=== PATIENT | female | born 1965 | race Caucasian/White ===

== ENCOUNTER 2019-01-05 10:45 | Emergency (ER) | payer MEDICARE, MEDICAID ==
[~2019-01-05] VITALS: Ht 154.9 cm; Wt 95.0 kg
[~2019-01-05 10:45] MED LIST: LIB25C PO; NO HOME MEDS
--- NOTE | 2019-01-05 10:56 | NUR ---
PT GETTING BLOOD DRAWN BEFORE TRIAGE.
[2019-01-05 11:36] LABS: BASOPHILS # (AUTO) 0.1 X10'3 (0-0.2); BASOPHILS % (AUTO) 0.8 % (0-1); EOSINOPHILS # (AUTO) 0.2 X10'3 (0-0.9); EOSINOPHILS % (AUTO) 1.9 % (0-6); HEMATOCRIT 49.3 % (35.0-45.0); HEMOGLOBIN 17.2 g/dl (12.0-16.0); LYMPHOCYTES # (AUTO) 2.2 X10'3 (1.1-4.8); LYMPHOCYTES % (AUTO) 23.2 % (21-51); MEAN CORPUSCULAR HEMOGLOBIN 33.4 PG (27.0-31.0); MEAN CORPUSCULAR HGB CONC 34.8 g/dL (33.0-36.5); MEAN CORPUSCULAR VOLUME 95.9 FL (78-98); MONOCYTES # (AUTO) 0.5 X10'3 (0-0.9); MONOCYTES % (AUTO) 5.8 % (2-12); NEUTROPHILS # (AUTO) 6.4 X10'3 (1.8-7.7); NEUTROPHILS % (AUTO) 68.3 % (42-75); PLATELET COUNT 212 X10'3 (140-440); RED BLOOD COUNT 5.14 X10'6 (4.20-5.60); RED CELL DISTRIBUTION WIDTH 13.2 % (11.5-14.5); WHITE BLOOD COUNT 9.4 X10'3 (4.5-11.0)
--- NOTE | 2019-01-05 11:39 | NUR ---
PATIENT REPORTS: HX: "BROKEN LEFT CLAVICLE: 6-7 YEARS AGO; CERVICAL FUSION -: 1998" PATIENT HAS TRIED : ICE/HEAT; IBUPROFEN AND TYLENOL; TIGER BALM: NOTHING IS HELPING "WORSE" PAIN STARTED 5 DAYS AGO AFTER SHE DID SOME CLEANING: HAD SOME PAIN IN LEFT SHOULDER PREVIOUSLY WHERE IBUPROFEN DID WORK PAIN NOW: POSTERIOR STABBING STARTS ALONG MEDIAL EDGE OF SHOULDER BLADE, UP AROUND SHOULDER BLADE SUPERIORLY OVER SHOULDER TO ANTERIOR SHOULDER
[2019-01-05 11:47] LABS: PARTIAL THROMBOPLASTIN TIME 26 SECONDS (22-32)
[2019-01-05 11:49] LABS: ALANINE AMINOTRANSFERASE 16 U/L (12-78); ALBUMIN 4.2 G/DL (3.4-5.0); ALBUMIN/GLOBULIN RATIO 1.1 (1.1-1.5); ALKALINE PHOSPHATASE 91 IU/L (46-116); ANION GAP 10 (8-16); ASPARTATE AMINO TRANSFERASE 14 U/L (10-37); BILIRUBIN,TOTAL 0.4 MG/DL (0.1-1.0); BLOOD UREA NITROGEN 12 MG/DL (7-18); BUN/CREATININE RATIO 17.9 (6.6-38.0); CALCIUM 9.5 MG/DL (8.5-10.1); CHLORIDE 101 MMOL/L (99-107); CREATININE 0.67 MG/DL (0.40-0.90); GLUCOSE 129 MG/DL (70-104); POTASSIUM 3.9 MMOL/L (3.5-5.1); SODIUM 139 MMOL/L (135-145); TOTAL CARBON DIOXIDE 27.7 MMOL/L (24-32); TOTAL PROTEIN 8.1 G/DL (6.4-8.2); eGFR > 90 ML/MIN
[2019-01-05] MEDS ORDERED: HYDROcodone/acetaminophen 5mg/325mg tablet PO ONE (12:00)
[2019-01-05] MEDS ORDERED: ondansetron 4mg rapidly disintigrating tab PO ONE (12:00)
[2019-01-05] MEDS ORDERED: amLODIPine 5mg tablet PO ONE (12:20)
[2019-01-05] MEDS ORDERED: HYDR-3965 PO (13:02)
[2019-01-05] MEDS ORDERED: LIDO700A32 TOP (13:02)
[2019-01-05] MEDS ORDERED: AMLO10TA13 PO (13:02)
[2019-01-05] MEDS ORDERED: CYCL-1 PO (13:02)
[2019-01-05 13:15] VITALS: BP 163/99
== END 2019-01-05 13:17 | disposition home or self-care (01) ==
LOC: ER 10:46
DX: M25.512 Pain in left shoulder (principal); I10 Essential (primary) hypertension; R79.1 Abnormal coagulation profile; R07.2 Precordial pain; Z79.899 Other long term (current) drug therapy
CPT/HCPCS: 20552; 36415; 71045; 73030; 80053; 84484; 85025; 85610; 85730; 93005; 99284

== ENCOUNTER 2019-11-15 12:57 | Inpatient (IN) | payer OTHER, MEDICARE, MEDICAID ==
[2019-11-15] VITALS (7 sets, daily range): BP systolic 62–109; BP diastolic 38–72
[~2019-11-15] VITALS: Ht 162.6 cm; Wt 88.6 kg
[~2019-11-15 12:57] MED LIST changes: +AMLO10TA13 PO; +CYCL-1 PO; +LIDO700A32 TOP; +NORepinephrine 8 MG in NS 250 ML BAG (32 mcg/ml) IV ONE; +calcium chloride 100 MG/1 ML inj IV ONE; +magnesium sulf 1 GM/2 ML ONE; +sodium bicarbonate (8.4%) 1 mEq/ml syringe ONE
[2019-11-15] MEDS ORDERED: aspirin 81mg tab.chew PO ONE (13:10)
[2019-11-15] MEDS ORDERED: aspirin 300mg supp.rect RC ONE (13:20)
[2019-11-15] MEDS ORDERED: magnesium 2GM in 50ml NS 50 ML IV ONE ×2 (13:20→23:10)
[2019-11-15 13:26] LABS: ABG BASE EXCESS -19.4 mmol/L (-2.0-2.0); ABG PO2 (T) 142.4 mmHg (75.0-100.0); ALLEN'S TEST POSITIVE; FMetHb 0.3 % (0.0-1.5); FO2Hb 90.9 % (94-97); RESPIRATORY RATE 18 b/min; TIDAL VOLUME 400 mL; TOTAL HEMOGLOBIN 13.6 G/dl (12.0-16.0)
--- NOTE | 2019-11-15 13:30 | NUR ---
BICARB 2 AMPS V/O Brigida BENTLEY
[2019-11-15] MEDS ORDERED: insulin regular, human 10 units/0.1 ml syringe IV ONE (13:35)
[2019-11-15 13:40] LABS: BASOPHILS # (AUTO) 0.1 X10'3 (0-0.2); BASOPHILS % (AUTO) 0.8 % (0-1); EOSINOPHILS # (AUTO) 0.2 X10'3 (0-0.9); EOSINOPHILS % (AUTO) 1.1 % (0-6); LYMPHOCYTES # (AUTO) 4.6 X10'3 (1.1-4.8); LYMPHOCYTES % (AUTO) 32.3 % (21-51); MONOCYTES # (AUTO) 0.5 X10'3 (0-0.9); MONOCYTES % (AUTO) 3.7 % (2-12); NEUTROPHILS # (AUTO) 8.7 X10'3 (1.8-7.7); NEUTROPHILS % (AUTO) 62.1 % (42-75); PLATELET COUNT 201 X10'3 (140-440); RED CELL DISTRIBUTION WIDTH 14.3 % (11.5-14.5); WHITE BLOOD COUNT 14.1 X10'3 (4.5-11.0)
[2019-11-15] MEDS ORDERED: NORepinephrine 8mg/ 250ml NS 250 ML IV PRN (13:40)
[2019-11-15] MEDS ORDERED: potassium CL 20mEq in D5-1/2NS 1,000 ML IV PRN (13:41)
[2019-11-15] MEDS ORDERED: sodium bicarbonate (8.4%) inj. 50 MEQ in dextrose 5% water 500ml 250 ML IV PRN (13:41)
[2019-11-15] MEDS ORDERED: sodium bicarbonate (8.4%) inj. 100 MEQ in dextrose 5% water 500ml 500 ML IV PRN (13:41)
--- NOTE | 2019-11-15 13:42 | NUR ---
1332 CA CHLORIDE 1338 BG "HIGH" 1340 INSULIN 10 UNITS 1340 LEVO 0.1 BP 62/43 1345 LEVO 0.15 FOR BP 77/42, HR 119
[2019-11-15] MEDS ORDERED: sodium phosphate inj. 30 MMOL in dextrose 5%-water 250 ML IV PRN (13:45)
[2019-11-15] MEDS ORDERED: morphine 2 MG/ML inj. syringe IV PRN (13:45)
[2019-11-15] MEDS ORDERED: Neutra Phos packet PO PRN (13:45)
[2019-11-15] MEDS ORDERED: acetaminophen 325mg tablet PO PRN ×2 (13:45)
[2019-11-15] MEDS ORDERED: potassium Cl 20 mEq SR tablet PO PRN ×2 (13:45)
[2019-11-15] MEDS ORDERED: insulin regular, human U-100 3ml vial - multi-dose IV PRN ×2 (13:45→14:15)
[2019-11-15] MEDS: K, MAG and/or Phos replacement - Verify level? MC SCH (13:45)
[2019-11-15] MEDS ORDERED: metoclopramide 5 mg/ml inj IV PRN (13:45)
[2019-11-15] MEDS ORDERED: potassium CL 10mEq/100ml bag 100 ML IV PRN ×2 (13:45)
[2019-11-15] MEDS ORDERED: sodium phosphate inj. 15 MMOL in dextrose 5%-water 250 ML IV PRN (13:45)
[2019-11-15 13:59] LABS: ALANINE AMINOTRANSFERASE 107 U/L (12-78); ALBUMIN 2.4 G/DL (3.4-5.0); ALBUMIN/GLOBULIN RATIO 0.9 (1.1-1.5); ALKALINE PHOSPHATASE 129 IU/L (46-116); ANION GAP 16 (8-16); ASPARTATE AMINO TRANSFERASE 170 U/L (10-37); BILIRUBIN,TOTAL 0.5 MG/DL (0.1-1.0); BLOOD UREA NITROGEN 12 MG/DL (7-18); BUN/CREATININE RATIO 9.9 (6.6-38.0); CALCIUM 9.9 MG/DL (8.5-10.1); CHLORIDE 98 MMOL/L (99-107); CREATININE 1.21 MG/DL (0.40-0.90); POTASSIUM 4.8 MMOL/L (3.5-5.1); SODIUM 134 MMOL/L (135-145); TOTAL CARBON DIOXIDE 20.2 MMOL/L (24-32); TOTAL PROTEIN 5.2 G/DL (6.4-8.2); eGFR 46 ML/MIN
[2019-11-15] MEDS: normal saline 1000ml 1,000 ML IV SCH ×5 (13:59→23:47)
[2019-11-15 14:09] LABS: GLUCOSE 744 MG/DL (70-104)
[2019-11-15] MEDS ORDERED: Insulin Reg/NS 100units/100mL 100 ML IV SCH (14:12)
[2019-11-15 14:22] LABS: HCG SERUM QL NEGATIVE
[2019-11-15] MEDS ORDERED: fentaNYL/PF 50MCG/1 ML 2ML syringe IV PRN ×2 (14:25→14:50)
[2019-11-15] MEDS ORDERED: midazolam 100mg in NS 100ml 100 ML IV PRN ×2 (14:25→14:48)
[2019-11-15 14:26] LABS: RED BLOOD COUNT 3.32 X10'6 (4.20-5.60)
[2019-11-15 14:27] LABS: HEMATOCRIT 34.1 % (35.0-45.0); HEMOGLOBIN 11.4 g/dl (12.0-16.0)
[2019-11-15 14:30] LABS: MEAN CORPUSCULAR VOLUME 102.7 FL (78-98)
[2019-11-15 14:31] LABS: MEAN CORPUSCULAR HEMOGLOBIN 34.2 PG (27.0-31.0); MEAN CORPUSCULAR HGB CONC 33.3 g/dL (33.0-36.5)
[2019-11-15] MEDS: Insulin Reg/NS 100units/100mL 100 ML IV SCH ×3 (14:32→23:58)
[2019-11-15 14:35] LABS: NUCLEATED RED BLOOD CELLS 1 /100WBC (0-0); PLATELET ESTIMATE NORMAL; TOTAL CELLS COUNTED 100
[2019-11-15 14:36] LABS: POLYCHROMASIA FEW
[2019-11-15 14:37] LABS: PHOSPHORUS 10.4 MG/DL (2.3-4.5)
[2019-11-15] MEDS ORDERED: midazolam 2 mg/2 ml injection IV PRN (14:50)
[2019-11-15] MEDS ORDERED: midazolam 2 mg/2 ml injection IV ONE (14:50)
[2019-11-15] MEDS ORDERED: CefTRIAXone 2gm/D5W 50ml 50 ML IV SCH (14:55)
[2019-11-15] MEDS ORDERED: levoFLOXACIN-Levaquin 750MG/D5 150 ML IV SCH (14:55)
--- NOTE | 2019-11-15 15:00 | NUR ---
NOTIFIED DR LI OF HR 140 AND BP 195/103. SEDATION CHANGED FROM VERSED TO PROPOFOL
[2019-11-15] MEDS ORDERED: propofol 1000mg/100ml bottle 100 ML IV ONE (15:01)
[2019-11-15 15:11] LABS: D-DIMER 33.64 MG/L FEU (0-0.50)
[2019-11-15 15:16] LABS: ABG BASE EXCESS -10.5 mmol/L (-2.0-2.0); ABG HCO3 16.6 mmol/L (22.0-26.0); ABG OXYGEN SATURATION 99.5 % (94-97); ABG PCO2 (T) 41.1 mmHg (32.0-45.0); ABG PO2 (T) 419.5 mmHg (75.0-100.0); ALLEN'S TEST POSITIVE; FCOHb 3.6 % (0.0-3.9); FMetHb 0.3 % (0.0-1.5); FO2Hb 95.6 % (94-97); PEEP 5 cm H2O; RESPIRATORY RATE 24 b/min; TIDAL VOLUME 400 mL; TOTAL HEMOGLOBIN 15.6 G/dl (12.0-16.0)
--- NOTE | 2019-11-15 15:17 | NUR ---
FENTANYL DRIP NOT IN THE [facility],CALLED PHARMACY/[facility].
[2019-11-15] MEDS ORDERED: iohexol 350MG/ML 100ml bottle IV ONE (15:24)
[2019-11-15] MEDS: FENTANYL-0.9 % NACL/PF 100 ML IV PRN ×2 (15:57→16:38)
--- NOTE | 2019-11-15 16:05 | NUR ---
PT INTO V TAC TORSAUDS PT SHOCKED WITH 200J WITH DR LI AT BS, MG 2 GRAMS IVP GIVEN AND LEVAQUIN STOPPED.
[2019-11-15 16:17] LABS: URINE AMPHETAMINE SCREEN NEGATIVE (Neg); URINE BARBITUATE SCREEN NEGATIVE (Neg); URINE BENZODIAZEPINES SCREEN POSITIVE (Neg); URINE CANNABINOID SCREEN NEGATIVE (Neg); URINE COCAINE SCREEN NEGATIVE (Neg); URINE METHADONE SCREEN NEGATIVE (Neg); URINE OPIATE SCREEN NEGATIVE (Neg); URINE PHENCYCLIDINE SCREEN NEGATIVE (Neg)
--- NOTE | 2019-11-15 16:20 | NUR ---
DR GILMORE AT TO CHECK ON PT. INFORMED OF TORSADS AND TX. HE RECOMENDS COOLING MEASURES, ICE PACKS APPLIED. MANDO WILL PUT IN PROTOCOL
--- NOTE | 2019-11-15 16:24 | NUR ---
PROPOFOL INCREASED TO 10MCG
[2019-11-15] MEDS: propofol 1000mg/100ml bottle 100 ML IV SCH (16:39)
--- NOTE | 2019-11-15 16:40 | NUR ---
FENT INCREASED TO 50MCG PROPOFOL TO 15MCG D/T HTN AND BUCKING THE VENT
--- NOTE | 2019-11-15 16:53 | NUR ---
Gave report to FISHER CRAB [place]ano,will speak to charge nurse since not aware that patient is suppose to be on cooling measures-which is verbally ordered by Dr. Andino when MD came down to see patient.JUSTEN Nguyen made aware.
[2019-11-15] MEDS ORDERED: vancomycin/NS 1 GM ADD-VANTAGE 250 ML IV SCH (17:00)
--- NOTE | 2019-11-15 17:08 | NUR ---
Per Wendy/clarita,[place] RN to come down to help ED RN take patient to icu.RT at bedside.
--- NOTE | 2019-11-15 18:20 | NUR ---
Patient in room ICU 2046. I have received report from STANISLAV Ríos and had the opportunity to ask questions and assume patient care. Patient recently arrived to ICU, targeted temperature management in progress. patinet is not responsive, no gag or cough noted with suction. Patient with hypotension with MAP < 60. Levophed started
[2019-11-15] MEDS: NORepinephrine 8mg/ 250ml NS 250 ML IV PRN (18:30)
--- NOTE | 2019-11-15 18:45 | NUR ---
Patient arrived to the unit at 1720 and placed on ventilator and bedside monitor with stable vital signs on an Insulin drip at 5mg/hour, Propofol at 15mcg/kg/min, and Fentanyl at 50mcg/hour. Patient up to the floor with copious liquid stool and rectal tube placed; C.Diff sample and isolation started. Patient quickly appeared to have labile blood pressure SBP in the 60s. Propofol and Fentanyl stopped and Levophed started. Patient remains unresponsive and pupils non-reactive 6mm. Jessica HERNANDEZ notified and orders for EEG in AM and Keppra. Also, orders for Blood Cultures.
--- NOTE | 2019-11-15 19:00 | NUR ---
Patients family called for update. Per family Patient has not been to a doctor in a while. Per family had been c/o shoulder pain since December. She has a history of seizure disorder since 2016, was on medications up to recently when she stopped seeing her doctor. Her family relate that she has had bilateral lower leg edema for the last couple of months and would c/o being dizzy when standing up. Per her family she is a current smoker of 0.75 packs per day. Previous issues with her liver and ETOH and has been sober per her family for 2 months. Additional family history of all the females on her mothers side have of heart issues.
[2019-11-15] MEDS ORDERED: meperidine/PF 25mg/ml syringe IV PRN (19:10)
[2019-11-15] MEDS ORDERED: CISatracurium **Bolus** 2 mg/ml inj IV PRN (19:10)
[2019-11-15] MEDS ORDERED: levetiracetam-NS 1000mg/100ml 100 ML IV ONE (19:15)
[2019-11-15 19:17] LABS: ALBUMIN 2.4 G/DL (3.4-5.0); ANION GAP 13 (8-16); BLOOD UREA NITROGEN 14 MG/DL (7-18); BUN/CREATININE RATIO 12.7 (6.6-38.0); CALCIUM 9.1 MG/DL (8.5-10.1); CHLORIDE 110 MMOL/L (99-107); GLUCOSE 353 MG/DL (70-104); PHOSPHORUS 3.1 MG/DL (2.3-4.5); SODIUM 144 MMOL/L (135-145); TOTAL CARBON DIOXIDE 21.4 MMOL/L (24-32); eGFR 52 ML/MIN
[2019-11-15 19:22] LABS: POTASSIUM 2.8 MMOL/L (3.5-5.1)
[2019-11-15] MEDS: potassium Cl 20mEq/100mL bag 100 ML IV PRN ×4 (19:46→23:46)
[2019-11-15] MEDS ORDERED: insulin Lispro (HumaLOG) vial - multi-dose SQ PRN (20:10)
[2019-11-15] MEDS: famotidine/PF 10 mg/ml inj IV SCH (20:45)
[2019-11-15 20:50] LABS: ABG BASE EXCESS -13.8 mmol/L (-2.0-2.0); ABG HCO3 14.8 mmol/L (22.0-26.0); ABG OXYGEN SATURATION 95.5 % (94-97); ABG PCO2 (T) 35.8 mmHg (32.0-45.0); ABG PO2 (T) 69.7 mmHg (75.0-100.0); ALLEN'S TEST POSITIVE; FCOHb 0.7 % (0.0-3.9); FMetHb 0.3 % (0.0-1.5); FO2Hb 94.5 % (94-97); PATIENT TEMPERATURE 32.2; PEEP 5 cm H2O; RESPIRATORY RATE 24 b/min; TIDAL VOLUME 400 mL; TOTAL HEMOGLOBIN 16.6 G/dl (12.0-16.0)
[2019-11-15 20:56] LABS: OXYGEN SATURATION (MIXED VEN) 48.3 % (60-80); PO2 MIXED VENOUS (TEMP COR) 22.6 mmHg (35-46)
--- NOTE | 2019-11-15 21:19 | NUR ---
Cynthia Zavala NP at bedside. Critical blood gas results and mixed venous given.
[2019-11-15] MEDS ORDERED: DOBUTamine-DoBUTrex 500mg/D5W 250 ML IV SCH (21:25)
[2019-11-15] MEDS: cefepime 2g/NS 100ml ADVANTAGE 100 ML IV SCH (21:28)
[2019-11-15 22:32] LABS: PARTIAL THROMBOPLASTIN TIME 22 SECONDS (22-32)
[2019-11-15 22:33] LABS: ALBUMIN 2.4 G/DL (3.4-5.0); ANION GAP 13 (8-16); BLOOD UREA NITROGEN 15 MG/DL (7-18); BUN/CREATININE RATIO 13.5 (6.6-38.0); CALCIUM 9.2 MG/DL (8.5-10.1); CHLORIDE 114 MMOL/L (99-107); CREATININE 1.11 MG/DL (0.40-0.90); GLUCOSE 195 MG/DL (70-104); MAGNESIUM 1.5 MG/DL (1.5-2.4); PHOSPHORUS 1.5 MG/DL (2.3-4.5); SODIUM 147 MMOL/L (135-145); TOTAL CARBON DIOXIDE 20.5 MMOL/L (24-32); eGFR 51 ML/MIN
[2019-11-15] MEDS: vancomycin/NS 1 GM ADD-VANTAGE 250 ML IV SCH (22:33)
[2019-11-15 22:35] LABS: POTASSIUM 2.6 MMOL/L (3.5-5.1)
[2019-11-15] MEDS ORDERED: dextrose 50%-water 50ml dispensing syringe IV PRN (23:10)
[2019-11-15 23:16] LABS: OXYGEN SATURATION (MIXED VEN) 57.4 % (60-80); PO2 MIXED VENOUS (TEMP COR) 25.9 mmHg (35-46)
[2019-11-16] VITALS (24 sets, daily range): BP systolic 81–128; BP diastolic 55–84
--- NOTE | 2019-11-16 | NUR ---
Patient remains unresponsive, no response to deep pain. Pupils are non reactive at 6mm. Targeted temperature management in progress.
[2019-11-16 01:24] LABS: ALANINE AMINOTRANSFERASE 143 U/L (12-78); ALBUMIN 2.4 G/DL (3.4-5.0); ALBUMIN/GLOBULIN RATIO 0.8 (1.1-1.5); ALKALINE PHOSPHATASE 117 IU/L (46-116); ANION GAP 10 (8-16); ASPARTATE AMINO TRANSFERASE 267 U/L (10-37); BILIRUBIN,TOTAL 0.4 MG/DL (0.1-1.0); BLOOD UREA NITROGEN 15 MG/DL (7-18); BUN/CREATININE RATIO 14.3 (6.6-38.0); CALCIUM 9.4 MG/DL (8.5-10.1); CHLORIDE 116 MMOL/L (99-107); CKMB RELATIVE INDEX 13.7 RATIO (0-2.5); CREATINE KINASE 695 U/L (26-192); CREATININE 1.05 MG/DL (0.40-0.90); GLUCOSE 146 MG/DL (70-104); MAGNESIUM 1.4 MG/DL (1.5-2.4); SODIUM 149 MMOL/L (135-145); TOTAL CARBON DIOXIDE 23.2 MMOL/L (24-32); TOTAL PROTEIN 5.4 G/DL (6.4-8.2); eGFR 54 ML/MIN
[2019-11-16 01:34] LABS: PHOSPHORUS 1.2 MG/DL (2.3-4.5); POTASSIUM 2.7 MMOL/L (3.5-5.1)
[2019-11-16] MEDS ORDERED: sodium phosphate inj. 15 MMOL in dextrose 5%-water 250 ML IV PRN (02:25)
[2019-11-16] MEDS ORDERED: sodium phosphate inj. 30 MMOL in dextrose 5%-water 250 ML IV PRN (02:25)
[2019-11-16 02:36] LABS: ABG BASE EXCESS -10.4 mmol/L (-2.0-2.0); ABG HCO3 16.2 mmol/L (22.0-26.0); ABG PCO2 (T) 32.6 mmHg (32.0-45.0); ABG PO2 (T) 181.4 mmHg (75.0-100.0); ALLEN'S TEST POSITIVE; FCOHb 0.2 % (0.0-3.9); FMetHb 0.3 % (0.0-1.5); FO2Hb 98.5 % (94-97); PATIENT TEMPERATURE 33.2; PEEP 5 cm H2O; RESPIRATORY RATE 24 b/min; TIDAL VOLUME 400 mL; TOTAL HEMOGLOBIN 16.3 G/dl (12.0-16.0)
--- NOTE | 2019-11-16 02:39 | NUR ---
Cynthia Zavala NP called and notified of Critical Lab results, K of 2.7 with replacement infusing. Phos 1.2 - replacement ordered, Troponin 9.87, 2 hour lactic acid 4.1. Also new blood gas results pH 7.29, pCO2 32.6, pO2 181.4. Normal saline at 100 ml/hr currently infusing. No new orders at this time, continue to monitor.
[2019-11-16] MEDS: potassium Cl 20mEq/100mL bag 100 ML IV PRN ×7 (02:46→17:18)
[2019-11-16 04:09] LABS: PARTIAL THROMBOPLASTIN TIME 25 SECONDS (22-32)
[2019-11-16 04:16] LABS: ALBUMIN 2.3 G/DL (3.4-5.0); ANION GAP 10 (8-16); BLOOD UREA NITROGEN 15 MG/DL (7-18); BUN/CREATININE RATIO 16.1 (6.6-38.0); CALCIUM 9.3 MG/DL (8.5-10.1); CHLORIDE 121 MMOL/L (99-107); CREATININE 0.93 MG/DL (0.40-0.90); GLUCOSE 128 MG/DL (70-104); MAGNESIUM 2.1 MG/DL (1.5-2.4); SODIUM 153 MMOL/L (135-145); TOTAL CARBON DIOXIDE 22.2 MMOL/L (24-32); eGFR 63 ML/MIN
[2019-11-16 04:19] LABS: POTASSIUM 2.8 MMOL/L (3.5-5.1); TROPONIN I 11.34 NG/ML (0.0-0.05)
--- NOTE | 2019-11-16 04:42 | NUR ---
Cynthia Zavala NP called: Sodium 153, Troponin 11.34. Patient has normal saline at 100 ml/hr running. No new orders at this time.
[2019-11-16] MEDS: NORepinephrine 8mg/ 250ml NS 250 ML IV PRN ×2 (05:11→16:43)
[2019-11-16 05:31] LABS: BASOPHILS % (AUTO) 0.3 % (0-1); EOSINOPHILS % (AUTO) 0.1 % (0-6); HEMATOCRIT 46.8 % (35.0-45.0); HEMOGLOBIN 15.2 g/dl (12.0-16.0); LYMPHOCYTES # (AUTO) 0.8 X10'3 (1.1-4.8); LYMPHOCYTES % (AUTO) 4.6 % (21-51); MEAN CORPUSCULAR HEMOGLOBIN 33.3 PG (27.0-31.0); MEAN CORPUSCULAR HGB CONC 32.5 g/dL (33.0-36.5); MEAN CORPUSCULAR VOLUME 102.7 FL (78-98); MEAN PLATELET VOLUME 9.8 FL (7.4-10.4); MONOCYTES % (AUTO) 5.1 % (2-12); NEUTROPHILS # (AUTO) 16.8 X10'3 (1.8-7.7); NEUTROPHILS % (AUTO) 89.9 % (42-75); PLATELET COUNT 195 X10'3 (140-440); RED BLOOD COUNT 4.56 X10'6 (4.20-5.60); RED CELL DISTRIBUTION WIDTH 14.4 % (11.5-14.5); WHITE BLOOD COUNT 18.6 X10'3 (4.5-11.0)
--- NOTE | 2019-11-16 06:30 | NUR ---
Patient in room ICU 2046. I have received report from Johana COLORADO and had the opportunity to ask questions and assume patient care. Addendum: 11/16/19 at 0714 by Wendy Claire RN Amended: Links added.
--- NOTE | 2019-11-16 06:35 | NUR ---
Problems reprioritized. Patient report given, questions answered & plan of care reviewed with STANISLAV Nguyen.
[2019-11-16] MEDS ORDERED: dextrose 50%-water 50ml dispensing syringe IV ONE (07:07)
[2019-11-16] MEDS: cefepime 2g/NS 100ml ADVANTAGE 100 ML IV SCH ×2 (07:47→20:22)
[2019-11-16] MEDS: famotidine/PF 10 mg/ml inj IV SCH ×2 (07:49→20:22)
[2019-11-16] MEDS: K, MAG and/or Phos replacement - Verify level? MC SCH (07:55)
[2019-11-16] MEDS ORDERED: pantoprazole 40 MG vial IV SCH ×3 (08:00)
[2019-11-16] MEDS: Levetiracetam-NS 500mg/100ml 100 ML IV SCH ×2 (08:32→20:22)
[2019-11-16] MEDS: normal saline 1000ml 1,000 ML IV SCH ×2 (09:05→10:56)
[2019-11-16] MEDS: vancomycin/NS 1 GM ADD-VANTAGE 250 ML IV SCH ×2 (10:12→21:45)
[2019-11-16 10:22] LABS: BASOPHILS % (AUTO) 0.3 % (0-1); EOSINOPHILS % (AUTO) 0 % (0-6); HEMATOCRIT 45.3 % (35.0-45.0); HEMOGLOBIN 15.1 g/dl (12.0-16.0); LYMPHOCYTES # (AUTO) 0.9 X10'3 (1.1-4.8); LYMPHOCYTES % (AUTO) 5.5 % (21-51); MEAN CORPUSCULAR HGB CONC 33.2 g/dL (33.0-36.5); MEAN CORPUSCULAR VOLUME 102.5 FL (78-98); MEAN PLATELET VOLUME 9.8 FL (7.4-10.4); MONOCYTES # (AUTO) 0.5 X10'3 (0-0.9); MONOCYTES % (AUTO) 3.5 % (2-12); NEUTROPHILS # (AUTO) 14.2 X10'3 (1.8-7.7); NEUTROPHILS % (AUTO) 90.7 % (42-75); PLATELET COUNT 179 X10'3 (140-440); RED BLOOD COUNT 4.42 X10'6 (4.20-5.60); RED CELL DISTRIBUTION WIDTH 14.3 % (11.5-14.5); WHITE BLOOD COUNT 15.7 X10'3 (4.5-11.0)
[2019-11-16 10:29] LABS: PARTIAL THROMBOPLASTIN TIME 25 SECONDS (22-32)
[2019-11-16 10:31] LABS: C DIFF ANTIGEN NEGATIVE (NEGATIVE); C DIFF SPECIMEN=DIARRHEA? ACCEPTABLE; C DIFFICILE TOXINS A&B NEGATIVE (Neg)
--- NOTE | 2019-11-16 10:32 | NUR ---
Pt. remains unresponsive to painful stimuli. Nguyễn (boyfriend) and Samia (sister) both called for updates this am. Nguyễn asked for test results but RN told him those cannot be discussed with a RN. Nguyễn stated he is not legally to pt. and RN reminded him that next-of-kin (family) usually can discuss test results with MD. Will order social science teacher for pt./ family situation
[2019-11-16 10:40] LABS: CKMB RELATIVE INDEX 22.9 RATIO (0-2.5)
[2019-11-16] MEDS: Insulin Reg/NS 100units/100mL 100 ML IV SCH ×2 (11:04→17:27)
--- NOTE | 2019-11-16 11:35 | NUR ---
Kris Consult: Kris 10; skin intact, no edema. Pt intubated s/p cardiac arrest DX PNA and DKA; anion gap normal this admit and no hx DM per EMR though initial pH 6.952 and Glu 744. OG in place w/ MAP 84 and on insulin drip w/ Glu 230 following low 11 this AM. Na 153 up from initial low 134; receiving electrolyte replacements as well w/ K 2.8 and Phos 2.0 this AM. EN recs below given pt needs. RD d/w RN regarding A1C this admit given no hx DM and current DX if MD agreeable. Will continue to monitor. Rec: 1. IF TF; Vital HP at 80ml/hr goal 2. IF TF; water flush 200ml Q4 3. IF TF; PALB Q /; daily wts 4. upon extubation; advance diet as medically indicated to carb controlled/heart healthy 5. DM diet ed if medically indicated pending A1C w/ DKA DX and no hx DM; if new DM DX pt will need to receive DX by MD prior to RD visit Addendum: 11/16/19 at [address] Amended: Links added.
[2019-11-16 11:36] LABS: ABG BASE EXCESS -10.8 mmol/L (-2.0-2.0); ABG OXYGEN SATURATION 98.1 % (94-97); ABG PCO2 (T) 25.3 mmHg (32.0-45.0); ABG PO2 (T) 93.2 mmHg (75.0-100.0); ALLEN'S TEST POSITIVE; FCOHb 0.6 % (0.0-3.9); FMetHb 0.3 % (0.0-1.5); FO2Hb 97.2 % (94-97); PATIENT TEMPERATURE 33.7; PEEP 5 cm H2O; RESPIRATORY RATE 24 b/min; TIDAL VOLUME 400 mL; TOTAL HEMOGLOBIN 15.4 G/dl (12.0-16.0)
--- NOTE | 2019-11-16 11:46 | NUR ---
Dr. Castellanos here to see pt. Stated to wean the Dobutamine.
[2019-11-16 11:52] LABS: POTASSIUM 3.2 MMOL/L (3.5-5.1)
[2019-11-16 11:53] LABS: HEMOGLOBIN A1C 10.3 % (4.5-6.2)
--- NOTE | 2019-11-16 11:54 | NUR ---
CDIFF negative results noted. Isolation precautions dc'd. Charge nurse aware.
[2019-11-16 12:01] LABS: TROPONIN I 11.03 NG/ML (0.0-0.05)
[2019-11-16] MEDS ORDERED: dextrose 5%-water 1,000 ML IV SCH (12:05)
[2019-11-16] MEDS ORDERED: magnesium 4gm in 100ml NS 100 ML IV PRN (13:10)
[2019-11-16] MEDS ORDERED: magnesium 2GM in 50ml NS 50 ML IV PRN (13:10)
--- NOTE | 2019-11-16 14:25 | NUR ---
Multiple phone calls this shift from Samia Adrian and another sister of patient. RN kindly asked that one person be designated as a spokesperson to lessen the number of phone calls that take RN away from pt's care. Father, Leo will be spokesperson. Will ask MD to call Leo with updates.
[2019-11-16 16:14] LABS: BASOPHILS % (AUTO) 0.3 % (0-1); EOSINOPHILS % (AUTO) 0 % (0-6); HEMATOCRIT 45.5 % (35.0-45.0); HEMOGLOBIN 14.9 g/dl (12.0-16.0); LYMPHOCYTES # (AUTO) 1.7 X10'3 (1.1-4.8); MEAN CORPUSCULAR HEMOGLOBIN 33.8 PG (27.0-31.0); MEAN CORPUSCULAR HGB CONC 32.7 g/dL (33.0-36.5); MEAN CORPUSCULAR VOLUME 103.2 FL (78-98); MEAN PLATELET VOLUME 9.3 FL (7.4-10.4); MONOCYTES # (AUTO) 0.5 X10'3 (0-0.9); MONOCYTES % (AUTO) 2.5 % (2-12); NEUTROPHILS # (AUTO) 16.4 X10'3 (1.8-7.7); NEUTROPHILS % (AUTO) 88.2 % (42-75); PLATELET COUNT 201 X10'3 (140-440); RED BLOOD COUNT 4.41 X10'6 (4.20-5.60); RED CELL DISTRIBUTION WIDTH 14.8 % (11.5-14.5); WHITE BLOOD COUNT 18.6 X10'3 (4.5-11.0)
[2019-11-16 16:31] LABS: PARTIAL THROMBOPLASTIN TIME 25 SECONDS (22-32)
[2019-11-16 16:42] LABS: CKMB RELATIVE INDEX 27.4 RATIO (0-2.5); MAGNESIUM 2.2 MG/DL (1.5-2.4); PHOSPHORUS 2.1 MG/DL (2.3-4.5)
[2019-11-16 17:07] LABS: POTASSIUM 3.3 MMOL/L (3.5-5.1)
[2019-11-16 17:08] LABS: TROPONIN I 10.43 NG/ML (0.0-0.05)
[2019-11-16] MEDS ORDERED: Potassium Cl inj 20 MEQ in dextrose 5%-water 990 ML IV SCH (17:15)
--- NOTE | 2019-11-16 18:20 | NUR ---
Patient in room ICU 2046. I have received report from STANISLAV Nguyen and had the opportunity to ask questions and assume patient care.
--- NOTE | 2019-11-16 18:45 | NUR ---
Patient is unresponsive to deep pain stimuli.
--- NOTE | 2019-11-16 18:51 | NUR ---
Brigida Treadwell NP called regarding new fluid order of D5% Water with 20 mEq of K. Patient will be heading into the rewarming phase. Due to potential electrolyte shifts, per NATTY Treadwell it is okay to discontinue this order. Order for D5% water at 150ml/hr given. RN will draw BMP to check K levels, before hanging last 20 mEq Potassium replacement.
--- NOTE | 2019-11-16 19:38 | NUR ---
Patients family: Leo ( father) and Samia ( sister) called for an update. They live in [facility] [place] [facility] and would like to speak to the doctor tomorrow. .
--- NOTE | 2019-11-16 19:41 | NUR ---
REWARMING PHASE STARTED.
[2019-11-16 19:54] LABS: ALBUMIN 2.1 G/DL (3.4-5.0); ANION GAP 11 (8-16); BLOOD UREA NITROGEN 12 MG/DL (7-18); BUN/CREATININE RATIO 14.5 (6.6-38.0); CALCIUM 9.2 MG/DL (8.5-10.1); CHLORIDE 132 MMOL/L (99-107); CREATININE 0.83 MG/DL (0.40-0.90); GLUCOSE 127 MG/DL (70-104); POTASSIUM 4.1 MMOL/L (3.5-5.1); TOTAL CARBON DIOXIDE 21.5 MMOL/L (24-32); eGFR 71 ML/MIN
[2019-11-16 19:56] LABS: SODIUM 164 MMOL/L (135-145)
[2019-11-16] MEDS: mineral oil/petrolatum ophthal oint EACHEYE SCH (20:22)
[2019-11-16] MEDS: dextrose 5%-water 1,000 ML IV SCH (20:24)
[2019-11-16 20:51] LABS: ABG BASE EXCESS -11.7 mmol/L (-2.0-2.0); ABG HCO3 14.6 mmol/L (22.0-26.0); ABG OXYGEN SATURATION 97.1 % (94-97); ABG PCO2 (T) 29.3 mmHg (32.0-45.0); ABG PO2 (T) 78.5 mmHg (75.0-100.0); ALLEN'S TEST POSITIVE; FCOHb 0.4 % (0.0-3.9); FMetHb 0.2 % (0.0-1.5); FO2Hb 96.5 % (94-97); PATIENT TEMPERATURE 32.9; PEEP 5 cm H2O; RESPIRATORY RATE 14 b/min; TIDAL VOLUME 400 mL; TOTAL HEMOGLOBIN 15.1 G/dl (12.0-16.0)
--- NOTE | 2019-11-16 21:28 | NUR ---
Cynthia Zavala NP called. Notified of Lab values: Sodium 164, patient currently has free water flushes of 150ml every 4 hours and D5% water at 150ml/hr. BiCarb is 14.6 on ABG. No new orders at this time.
[2019-11-16 22:14] LABS: BASOPHILS # (AUTO) 0.1 X10'3 (0-0.2); BASOPHILS % (AUTO) 0.5 % (0-1); EOSINOPHILS # (AUTO) 0.1 X10'3 (0-0.9); EOSINOPHILS % (AUTO) 0.3 % (0-6); HEMATOCRIT 43.3 % (35.0-45.0); HEMOGLOBIN 14.1 g/dl (12.0-16.0); LYMPHOCYTES # (AUTO) 1.8 X10'3 (1.1-4.8); LYMPHOCYTES % (AUTO) 9.7 % (21-51); MEAN CORPUSCULAR HEMOGLOBIN 33.9 PG (27.0-31.0); MEAN CORPUSCULAR HGB CONC 32.7 g/dL (33.0-36.5); MEAN CORPUSCULAR VOLUME 103.7 FL (78-98); MEAN PLATELET VOLUME 9.9 FL (7.4-10.4); MONOCYTES # (AUTO) 0.5 X10'3 (0-0.9); MONOCYTES % (AUTO) 2.5 % (2-12); NEUTROPHILS # (AUTO) 16.4 X10'3 (1.8-7.7); PLATELET COUNT 174 X10'3 (140-440); RED BLOOD COUNT 4.17 X10'6 (4.20-5.60); RED CELL DISTRIBUTION WIDTH 14.6 % (11.5-14.5); WHITE BLOOD COUNT 18.9 X10'3 (4.5-11.0)
[2019-11-16 22:27] LABS: PARTIAL THROMBOPLASTIN TIME 27 SECONDS (22-32)
[2019-11-16 22:39] LABS: CKMB RELATIVE INDEX 35.8 RATIO (0-2.5); MAGNESIUM 2.1 MG/DL (1.5-2.4); PHOSPHORUS 3.7 MG/DL (2.3-4.5)
[2019-11-17] VITALS (24 sets, daily range): BP systolic 81–150; BP diastolic 50–87
--- NOTE | 2019-11-17 | NUR ---
Patient remains unresponsive to any stimuli, no cough or gag noted with oral and ET tube suction. Pupils non reactive. Doppler pulses present to bilateral lower extremities, capillary refill delayed. Patient remains on the targeted temperature management protocol phase 2 rewarming.
[2019-11-17] MEDS: propofol 1000mg/100ml bottle 100 ML IV SCH (00:21)
[2019-11-17] MEDS: dextrose 5%-water 1,000 ML IV SCH ×4 (02:07→17:11)
[2019-11-17] MEDS: mineral oil/petrolatum ophthal oint EACHEYE SCH ×3 (02:07→13:36)
[2019-11-17 03:31] LABS: ABG BASE EXCESS -11.8 mmol/L (-2.0-2.0); ABG OXYGEN SATURATION 96.9 % (94-97); ABG PO2 (T) 80.7 mmHg (75.0-100.0); ALLEN'S TEST POSITIVE; FCOHb 0.5 % (0.0-3.9); FMetHb 0.2 % (0.0-1.5); FO2Hb 96.2 % (94-97); PATIENT TEMPERATURE 34.8; PEEP 5 cm H2O; RESPIRATORY RATE 24 b/min; TIDAL VOLUME 400 mL; TOTAL HEMOGLOBIN 14.2 G/dl (12.0-16.0)
[2019-11-17] MEDS: NORepinephrine 8mg/ 250ml NS 250 ML IV PRN ×2 (04:12→13:34)
[2019-11-17 04:29] LABS: PARTIAL THROMBOPLASTIN TIME 27 SECONDS (22-32)
[2019-11-17 04:40] LABS: CKMB RELATIVE INDEX 45.9 RATIO (0-2.5); CREATINE KINASE 212 U/L (26-192); MAGNESIUM 1.8 MG/DL (1.5-2.4); PHOSPHORUS 4.9 MG/DL (2.3-4.5)
[2019-11-17 04:52] LABS: ALANINE AMINOTRANSFERASE 116 U/L (12-78); ALBUMIN 1.9 G/DL (3.4-5.0); ALBUMIN/GLOBULIN RATIO 0.7 (1.1-1.5); ALKALINE PHOSPHATASE 104 IU/L (46-116); ANION GAP 15 (8-16); ASPARTATE AMINO TRANSFERASE 188 U/L (10-37); BILIRUBIN,TOTAL 0.3 MG/DL (0.1-1.0); BLOOD UREA NITROGEN 13 MG/DL (7-18); BUN/CREATININE RATIO 14.1 (6.6-38.0); CALCIUM 8.6 MG/DL (8.5-10.1); CHLORIDE 126 MMOL/L (99-107); CREATININE 0.92 MG/DL (0.40-0.90); GLUCOSE 206 MG/DL (70-104); POTASSIUM 3.9 MMOL/L (3.5-5.1); TOTAL CARBON DIOXIDE 18.3 MMOL/L (24-32); TOTAL PROTEIN 4.8 G/DL (6.4-8.2); eGFR 63 ML/MIN
[2019-11-17 04:54] LABS: SODIUM 159 MMOL/L (135-145)
[2019-11-17 05:23] LABS: BASOPHILS # (AUTO) 0.1 X10'3 (0-0.2); BASOPHILS % (AUTO) 0.6 % (0-1); EOSINOPHILS # (AUTO) 0.1 X10'3 (0-0.9); EOSINOPHILS % (AUTO) 0.8 % (0-6); HEMATOCRIT 41.1 % (35.0-45.0); HEMOGLOBIN 13.4 g/dl (12.0-16.0); LYMPHOCYTES # (AUTO) 1.5 X10'3 (1.1-4.8); LYMPHOCYTES % (AUTO) 9.2 % (21-51); MEAN CORPUSCULAR HEMOGLOBIN 33.8 PG (27.0-31.0); MEAN CORPUSCULAR HGB CONC 32.7 g/dL (33.0-36.5); MEAN CORPUSCULAR VOLUME 103.5 FL (78-98); MEAN PLATELET VOLUME 10.2 FL (7.4-10.4); MONOCYTES # (AUTO) 0.6 X10'3 (0-0.9); MONOCYTES % (AUTO) 3.5 % (2-12); NEUTROPHILS # (AUTO) 14.1 X10'3 (1.8-7.7); NEUTROPHILS % (AUTO) 85.9 % (42-75); PLATELET COUNT 148 X10'3 (140-440); RED BLOOD COUNT 3.97 X10'6 (4.20-5.60); RED CELL DISTRIBUTION WIDTH 15.1 % (11.5-14.5); WHITE BLOOD COUNT 16.4 X10'3 (4.5-11.0)
--- NOTE | 2019-11-17 06:21 | NUR ---
Patients R foot mottled, unable to find a pulse with doppler by 2 - RN's. Right femoral central line having difficulty drawing. Cynthia Zavala NP called. Orders for PICC line and Arterial Doppler of lower extremities.
--- NOTE | 2019-11-17 06:24 | NUR ---
Problems reprioritized. Patient report given, questions answered & plan of care reviewed with STANISLAV Nguyen.
--- NOTE | 2019-11-17 06:40 | NUR ---
Patient in room ICU 2046. I have received report from Johana COLORADO and had the opportunity to ask questions and assume patient care. Addendum: 11/17/19 at 0641 by Wendy Claire RN Amended: Links added.
[2019-11-17] MEDS: cefepime 2g/NS 100ml ADVANTAGE 100 ML IV SCH (07:25)
[2019-11-17] MEDS: famotidine/PF 10 mg/ml inj IV SCH (07:26)
[2019-11-17] MEDS: Insulin Reg/NS 100units/100mL 100 ML IV SCH ×3 (07:30→21:06)
[2019-11-17] MEDS: K, MAG and/or Phos replacement - Verify level? MC SCH (07:35)
[2019-11-17] MEDS ORDERED: heparin, porcine 5000 units/ml vial SQ SCH (08:00)
[2019-11-17] MEDS: Levetiracetam-NS 500mg/100ml 100 ML IV SCH (08:02)
--- NOTE | 2019-11-17 08:29 | NUR ---
AWAITING PICC ORDER SIGNATURE FROM FOR PLACEMENT. Brigida MORALES PICC RN
--- NOTE | 2019-11-17 08:39 | NUR ---
Call placed to [facility] for possible donor.
--- NOTE | 2019-11-17 08:49 | NUR ---
[facility] INFO: Contact: Mian Ref. #: [phone] STANISLAV called 11/17/19 0837
[2019-11-17] MEDS ORDERED: VANCOMYCIN LEVEL IV ONE ×2 (09:30→21:30)
--- NOTE | 2019-11-17 09:32 | NUR ---
Unable to obtain labs from [facility]. RN called to request phleb. draw 0930 and 1000 labs until a new line can be established.
--- NOTE | 2019-11-17 09:33 | NUR ---
Right foot more mottled and colder than earlier noted. Awaiting technician automated equipment.
[2019-11-17 09:46] LABS: ABG BASE EXCESS -10.8 mmol/L (-2.0-2.0); ABG HCO3 16.1 mmol/L (22.0-26.0); ABG OXYGEN SATURATION 95.3 % (94-97); ABG PCO2 (T) 37.1 mmHg (32.0-45.0); ABG PO2 (T) 75.2 mmHg (75.0-100.0); ALLEN'S TEST POSITIVE; FCOHb 0.4 % (0.0-3.9); FLOW 40 L/min; FMetHb 0.2 % (0.0-1.5); FO2Hb 94.7 % (94-97); PATIENT TEMPERATURE 35.7; PEEP 5 cm H2O; RESPIRATORY RATE 24 b/min; TIDAL VOLUME 400 mL; TOTAL HEMOGLOBIN 14.2 G/dl (12.0-16.0)
--- NOTE | 2019-11-17 09:49 | NUR ---
Charge nurse updated with pt. deteriorating condition. Right foot is colder and more dusky, ABG is worse (pH 7.229), urine output is significantly decreased and Levo dose is increased.
--- NOTE | 2019-11-17 10:00 | NUR ---
PICC consent signed by Dr. Andino. earth science laboratory technician Chaim here now.
--- NOTE | 2019-11-17 10:01 | NUR ---
SPOKE WITH JACINTO COLORADO, PICC CONSENT SIGNED WILL WAIT UNTIL VASCULAR STUDY COMPLETE TO PLACE LINE. NICK PICC RN
[2019-11-17] MEDS: vancomycin/NS 1 GM ADD-VANTAGE 250 ML IV SCH (10:18)
[2019-11-17] MEDS ORDERED: albuterol 2.5 MG/3 ML nebule NEB PRN (11:00)
--- NOTE | 2019-11-17 11:02 | NUR ---
MRI screening form faxed to MRI. PICC RN here to place ext. PIV for now. Vascular lab still performing study.
[2019-11-17] MEDS ORDERED: heparin 25,000 UNIT/250ml bag 250 ML IV SCH (11:11)
[2019-11-17] MEDS ORDERED: heparin 10,000 units/1 ML INJ IV PRN (11:15)
[2019-11-17] MEDS ORDERED: heparin 10,000 units/1 ML INJ IV ONE (11:15)
--- NOTE | 2019-11-17 11:47 | NUR ---
WAITING 0N PICC PLACEMENT DUE TO PT HAVING MULTIPLE TESTS AND IS NOT AVAILABLE AT THIS TIME. DR GILMORE AWARE OF DELAY IN PICC PLACEMENT, PER RN CAN WAIT UNTIL TOMORROW. Brigida MORALES PICC RN
--- NOTE | 2019-11-17 11:53 | NUR ---
Dr. Andino spoke with Dr. Shea re. patient. Suggested Heparin gtt. Heparin gtt initiated per cardiac protocol.
--- NOTE | 2019-11-17 11:54 | NUR ---
F/u (11/17): A1C result 10.3 and non-compliance w/ meds per EMR. Pending EEG/MRI and discussion w/ POA today per MD regarding outlook. Unsure if new DX or non-compliance w/ treatment at this time. Will continue to monitor. Addendum: 11/17/19 at [address] Amended: Links added.
[2019-11-17 12:12] LABS: ALBUMIN 1.8 G/DL (3.4-5.0); ANION GAP 11 (8-16); BLOOD UREA NITROGEN 12 MG/DL (7-18); CHLORIDE 128 MMOL/L (99-107); CREATININE 0.92 MG/DL (0.40-0.90); GLUCOSE 99 MG/DL (70-104); MAGNESIUM 1.8 MG/DL (1.5-2.4); PHOSPHORUS 5.6 MG/DL (2.3-4.5); eGFR 63 ML/MIN
[2019-11-17 12:14] LABS: SODIUM 158 MMOL/L (135-145)
[2019-11-17 12:15] LABS: POTASSIUM 4.2 MMOL/L (3.5-5.1)
[2019-11-17 12:25] LABS: PARTIAL THROMBOPLASTIN TIME 27 SECONDS (22-32)
--- NOTE | 2019-11-17 12:49 | NUR ---
EEG being set up now. Spoke with counter intelligence technician who stated she has many MRIs scheduled for today. Will keep in contact re. what time pt's MRI will be.
[2019-11-17 13:03] LABS: BASOPHILS # (AUTO) 0.1 X10'3 (0-0.2); BASOPHILS % (AUTO) 0.5 % (0-1); EOSINOPHILS # (AUTO) 0.3 X10'3 (0-0.9); EOSINOPHILS % (AUTO) 1.9 % (0-6); HEMATOCRIT 40.9 % (35.0-45.0); HEMOGLOBIN 13.2 g/dl (12.0-16.0); LYMPHOCYTES % (AUTO) 11.4 % (21-51); MEAN CORPUSCULAR HEMOGLOBIN 33.7 PG (27.0-31.0); MEAN CORPUSCULAR HGB CONC 32.3 g/dL (33.0-36.5); MEAN CORPUSCULAR VOLUME 104.2 FL (78-98); MEAN PLATELET VOLUME 10.4 FL (7.4-10.4); MONOCYTES # (AUTO) 1.1 X10'3 (0-0.9); NEUTROPHILS # (AUTO) 14.3 X10'3 (1.8-7.7); NEUTROPHILS % (AUTO) 80.2 % (42-75); PLATELET COUNT 152 X10'3 (140-440); RED BLOOD COUNT 3.93 X10'6 (4.20-5.60); RED CELL DISTRIBUTION WIDTH 14.7 % (11.5-14.5); WHITE BLOOD COUNT 17.8 X10'3 (4.5-11.0)
--- NOTE | 2019-11-17 14:17 | NUR ---
Dr. Andino aware of EEG results. Stated he will call pt's father and let him know the results and get ready to perform the cold caloric and apnea tests to determine brain .
--- NOTE | 2019-11-17 14:32 | NUR ---
Cold caloric test elicited no eye movements from pt.
[2019-11-17 14:41] LABS: ABG BASE EXCESS -12.6 mmol/L (-2.0-2.0); ABG HCO3 14.5 mmol/L (22.0-26.0); ABG PCO2 (T) 36.7 mmHg (32.0-45.0); ABG PO2 (T) 180.1 mmHg (75.0-100.0); ALLEN'S TEST POSITIVE; FCOHb 0.4 % (0.0-3.9); FLOW 40 L/min; FMetHb 0.3 % (0.0-1.5); FO2Hb 98.3 % (94-97); PATIENT TEMPERATURE 36.7; PEEP 5 cm H2O; RESPIRATORY RATE 24 b/min; TIDAL VOLUME 400 mL; TOTAL HEMOGLOBIN 14.2 G/dl (12.0-16.0)
[2019-11-17 15:06] LABS: ABG BASE EXCESS -12.6 mmol/L (-2.0-2.0); ABG HCO3 14.8 mmol/L (22.0-26.0); ABG OXYGEN SATURATION 99.1 % (94-97); ABG PCO2 (T) 38.5 mmHg (32.0-45.0); ABG PO2 (T) 203.6 mmHg (75.0-100.0); ALLEN'S TEST POSITIVE; FCOHb 0.3 % (0.0-3.9); FLOW 40 L/min; FMetHb 0.3 % (0.0-1.5); FO2Hb 98.5 % (94-97); PATIENT TEMPERATURE 36.7; PEEP 5 cm H2O; RESPIRATORY RATE 22 b/min; TIDAL VOLUME 500 mL; TOTAL HEMOGLOBIN 13.9 G/dl (12.0-16.0)
[2019-11-17 15:32] LABS: ABG HCO3 15.6 mmol/L (22.0-26.0); ABG OXYGEN SATURATION 89.8 % (94-97); ABG PCO2 (T) 61.5 mmHg (32.0-45.0); ABG PO2 (T) 72.6 mmHg (75.0-100.0); ALLEN'S TEST POSITIVE; FCOHb 0.4 % (0.0-3.9); FLOW 10 L/min; FMetHb 0.4 % (0.0-1.5); FO2Hb 89.1 % (94-97); PATIENT TEMPERATURE 36.9; TOTAL HEMOGLOBIN 14.7 G/dl (12.0-16.0)
--- NOTE | 2019-11-17 15:39 | NUR ---
Referral for low padmini received. Nurse Wendy explained patients current prognosis. No need for wound care assessment at this time.
--- NOTE | 2019-11-17 15:48 | NUR ---
Dr. Andino consulted with Dr. Jasvir miller. confirming brain . [facility] aware of pt's status. BF Nguyễn, son Tj and daughter Irena to come here soon.
[2019-11-17] MEDS ORDERED: NORepinephrine inj. 32 MG in normal saline 250ml IV soln 218 ML IV PRN (16:00)
--- NOTE | 2019-11-17 16:54 | NUR ---
Patient's boyfriend Nguyễn and daughter Irena and son Tj here. Dr. Andino talked with them re. pt's brain .
--- NOTE | 2019-11-17 18:20 | NUR ---
Problems reprioritized. Patient report given, questions answered & plan of care reviewed with Divya COLORADO.
--- NOTE | 2019-11-17 18:30 | NUR ---
Patient in room ICU 2046. I have received report from STANISLAV Nguyen and had the opportunity to ask questions and assume patient care.
[2019-11-17] MEDS: NORepinephrine 8mg/ 250ml NS 250 ML IV SCH (18:55)
--- NOTE | 2019-11-17 19:00 | NUR ---
Patient is now under care of donor network.
[2019-11-17] MEDS ORDERED: MAGNESIUM 4 GRAM IN 100ML NS IV PRN (19:20)
[2019-11-17] MEDS ORDERED: calcium chloride inj. 1,000 MG in normal saline 100ml BAG IV PRN (19:20)
[2019-11-17] MEDS ORDERED: NORMAL SALINE IV SCH ×5 (19:26→20:00)
[2019-11-17] MEDS ORDERED: LEVOTHYROXINE SOD IV SCH (19:26)
[2019-11-17] MEDS ORDERED: PEG 400/HYPROMELLOSE/GLYCERIN 15ml bottle EACHEYE PRN (19:30)
[2019-11-17] MEDS ORDERED: Potassium Cl inj 20 MEQ in dextrose 5%-water 1,000 ML IV SCH (19:31)
[2019-11-17] MEDS ORDERED: dextrose ORAL solution 15 GM/59 ML bottle PO PRN ×2 (19:35)
[2019-11-17] MEDS ORDERED: glucagon, human recombinant 1mg kit SUBCUT PRN (19:35)
[2019-11-17] MEDS ORDERED: MESSAGE TO PHARMACY PO ONE (19:35)
[2019-11-17] MEDS ORDERED: sodium phosphate inj. 15 MMOL in dextrose 5%-water 250 ML IV PRN (19:35)
[2019-11-17] MEDS ORDERED: sodium phosphate inj. 30 MMOL in dextrose 5%-water 250 ML IV PRN (19:35)
[2019-11-17] MEDS ORDERED: dextrose 50%-water 50ml dispensing syringe IV PRN ×2 (19:35)
[2019-11-17] MEDS ORDERED: insulin Lispro (HumaLOG) vial - multi-dose SQ SCH (19:35)
[2019-11-17] MEDS ORDERED: potassium CL 10mEq/100ml bag 100 ML IV PRN (19:35)
[2019-11-17] MEDS ORDERED: levoTHYROXINE sod inj. 100mcg/5 ml vial IV ONE (19:45)
[2019-11-17 19:56] LABS: ABG BASE EXCESS -12.6 mmol/L (-2.0-2.0); ABG HCO3 15.4 mmol/L (22.0-26.0); ABG OXYGEN SATURATION 93.4 % (94-97); ABG PCO2 (T) 42.8 mmHg (32.0-45.0); ABG PO2 (T) 74.8 mmHg (75.0-100.0); ALLEN'S TEST POSITIVE; FCOHb 0.5 % (0.0-3.9); FMetHb 0.2 % (0.0-1.5); FO2Hb 92.7 % (94-97); PEEP 8 cm H2O; RESPIRATORY RATE 24 b/min; TOTAL HEMOGLOBIN 14.7 G/dl (12.0-16.0)
[2019-11-17] MEDS: albuterol 2.5 MG/3 ML nebule NEB SCH ×2 (20:00→23:41)
[2019-11-17] MEDS ORDERED: lactobacillus rhamnosus 10,000 MMU CELLS/CAPSULE PO SCH (20:00)
[2019-11-17] MEDS ORDERED: METHYLPREDNISOLONE SOD SUCC IV SCH ×4 (20:00)
[2019-11-17] MEDS: K and/or MAG REPLACEMENT MC SCH (20:00)
[2019-11-17 20:16] LABS: BASOPHILS # (AUTO) 0.2 X10'3 (0-0.2); EOSINOPHILS # (AUTO) 0.5 X10'3 (0-0.9); EOSINOPHILS % (AUTO) 2.5 % (0-6); MONOCYTES # (AUTO) 1.2 X10'3 (0-0.9); NEUTROPHILS # (AUTO) 14.1 X10'3 (1.8-7.7)
[2019-11-17 20:17] LABS: BASOPHILS % (AUTO) 1.3 % (0-1); HEMATOCRIT 40.4 % (35.0-45.0); HEMOGLOBIN 13.3 g/dl (12.0-16.0); LYMPHOCYTES # (AUTO) 2.6 X10'3 (1.1-4.8); LYMPHOCYTES % (AUTO) 14.2 % (21-51); MEAN CORPUSCULAR HEMOGLOBIN 34.6 PG (27.0-31.0); MEAN CORPUSCULAR VOLUME 104.7 FL (78-98); MEAN PLATELET VOLUME 10.2 FL (7.4-10.4); MONOCYTES % (AUTO) 6.6 % (2-12); NEUTROPHILS % (AUTO) 75.4 % (42-75); PLATELET COUNT 147 X10'3 (140-440); RED BLOOD COUNT 3.86 X10'6 (4.20-5.60); RED CELL DISTRIBUTION WIDTH 15.2 % (11.5-14.5); WHITE BLOOD COUNT 18.7 X10'3 (4.5-11.0)
[2019-11-17] MEDS: vasopressin 40 UNIT in NS 40ml IV DRIP IV SCH (20:25)
[2019-11-17 20:28] LABS: HEMOGLOBIN A1C 11.1 % (4.5-6.2)
[2019-11-17 20:32] LABS: ALANINE AMINOTRANSFERASE 125 U/L (12-78); ALBUMIN/GLOBULIN RATIO 0.6 (1.1-1.5); ALKALINE PHOSPHATASE 141 IU/L (46-116); ANION GAP 12 (8-16); ASPARTATE AMINO TRANSFERASE 196 U/L (10-37); BILIRUBIN,TOTAL 0.4 MG/DL (0.1-1.0); BLOOD UREA NITROGEN 14 MG/DL (7-18); BUN/CREATININE RATIO 11.3 (6.6-38.0); CHLORIDE 122 MMOL/L (99-107); CREATININE 1.24 MG/DL (0.40-0.90); GLUCOSE 115 MG/DL (70-104); POTASSIUM 4.6 MMOL/L (3.5-5.1); SODIUM 153 MMOL/L (135-145); TOTAL CARBON DIOXIDE 19.5 MMOL/L (24-32); TOTAL PROTEIN 5.4 G/DL (6.4-8.2); eGFR 45 ML/MIN
[2019-11-17 20:33] LABS: CLARITY,URINE CLEAR (Clear); COLOR,URINE YELLOW (Yellow); GLUCOSE, URINE NEGATIVE (Neg); KETONES,URINE NEGATIVE (Neg); LEUKOCYTE ESTERASE ,URINE TRACE (Neg); NITRITES, URINE NEGATIVE (Neg); OCCULT BLOOD,URINE LARGE (Neg); PROTEIN,URINE 30 mg/dl (Neg); UROBILINOGEN,URINE 0.2 E.U/dL (0.2-1.0)
[2019-11-17 20:34] LABS: UA COLLECTION TYPE NON-SPECIFIED
[2019-11-17 20:43] LABS: AMYLASE 13 U/L (25-115); BILIRUBIN,DIRECT 0.1 MG/DL (0-0.3); CKMB RELATIVE INDEX 17.8 RATIO (0-2.5); CREATINE KINASE 236 U/L (26-192); LIPASE 65 U/L (73-393); MAGNESIUM 1.8 MG/DL (1.5-2.4); PHOSPHORUS 6.5 MG/DL (2.3-4.5)
[2019-11-17] MEDS: levoTHYROXINE sod inj. 200 MCG in normal saline 500ml IV soln 490 ML IV SCH (20:52)
[2019-11-17 21:00] LABS: WBC,URINE 0-4 /HPF (0-4)
[2019-11-17] MEDS: insulin glargine (Lantus) pen - multi-dose SQ SCH (21:00)
[2019-11-17 21:02] LABS: AMORPHOUS URATES 4+
[2019-11-17 21:05] LABS: BACTERIA,URINE FEW /HPF (Neg); SQUAMOUS EPITHELIAL CELL,UR NONE SEEN /LPF (FEW)
[2019-11-17] MEDS: MAGNESIUM 2 GRAM IN 50ML NS IV PRN (21:44)
[2019-11-17] MEDS ORDERED: sodium bicarbonate (8.4%) 1 mEq/ml syringe IV ONE (22:55)
[2019-11-17] MEDS ORDERED: dextrose 5%-water 1,000 ML IV SCH ×2 (22:55→23:30)
[2019-11-17 23:36] LABS: ABG BASE EXCESS 3.5 mmol/L (-2.0-2.0); ABG OXYGEN SATURATION 94.5 % (94-97); ABG PCO2 (T) 61.8 mmHg (32.0-45.0); ABG PO2 (T) 73.4 mmHg (75.0-100.0); FCOHb 0.1 % (0.0-3.9); FMetHb 0.2 % (0.0-1.5); FO2Hb 94.2 % (94-97); PATIENT TEMPERATURE 37.2; PEEP 24 cm H2O; RESPIRATORY RATE 24 b/min; TIDAL VOLUME 400 mL; TOTAL HEMOGLOBIN 12.7 G/dl (12.0-16.0)
[2019-11-17] MEDS: piperacillin/tazo 3.375gm/50ml 50 ML IV SCH (23:51)
[2019-11-18] VITALS (26 sets, daily range): BP systolic 95–177; BP diastolic 53–88
[2019-11-18 01:51] LABS: PARTIAL THROMBOPLASTIN TIME 31 SECONDS (22-32)
[2019-11-18 01:53] LABS: ALANINE AMINOTRANSFERASE 104 U/L (12-78); ALBUMIN 1.7 G/DL (3.4-5.0); ALBUMIN/GLOBULIN RATIO 0.6 (1.1-1.5); ALKALINE PHOSPHATASE 128 IU/L (46-116); ANION GAP 8 (8-16); ASPARTATE AMINO TRANSFERASE 182 U/L (10-37); BILIRUBIN,TOTAL 0.3 MG/DL (0.1-1.0); BLOOD UREA NITROGEN 14 MG/DL (7-18); BUN/CREATININE RATIO 10.4 (6.6-38.0); CALCIUM 7.7 MG/DL (8.5-10.1); CHLORIDE 116 MMOL/L (99-107); CREATININE 1.35 MG/DL (0.40-0.90); GLUCOSE 341 MG/DL (70-104); SODIUM 143 MMOL/L (135-145); TOTAL CARBON DIOXIDE 19.1 MMOL/L (24-32); TOTAL PROTEIN 4.6 G/DL (6.4-8.2); eGFR 41 ML/MIN
[2019-11-18 02:05] LABS: CKMB RELATIVE INDEX 7.5 RATIO (0-2.5); CREATINE KINASE 348 U/L (26-192); MAGNESIUM 2.2 MG/DL (1.5-2.4); PHOSPHORUS 5.6 MG/DL (2.3-4.5)
[2019-11-18 02:06] LABS: BILIRUBIN,DIRECT 0.1 MG/DL (0-0.3); POTASSIUM 4.8 MMOL/L (3.5-5.1)
[2019-11-18 02:18] LABS: BASOPHILS # (AUTO) 0.1 X10'3 (0-0.2); MONOCYTES # (AUTO) 0.4 X10'3 (0-0.9); MONOCYTES % (AUTO) 2.7 % (2-12)
[2019-11-18 02:19] LABS: EOSINOPHILS % (AUTO) 0.3 % (0-6); HEMATOCRIT 36.9 % (35.0-45.0); HEMOGLOBIN 12.1 g/dl (12.0-16.0); LYMPHOCYTES # (AUTO) 0.6 X10'3 (1.1-4.8); MEAN CORPUSCULAR HEMOGLOBIN 34.1 PG (27.0-31.0); MEAN CORPUSCULAR HGB CONC 32.8 g/dL (33.0-36.5); MEAN CORPUSCULAR VOLUME 103.9 FL (78-98); MEAN PLATELET VOLUME 10.7 FL (7.4-10.4); NEUTROPHILS # (AUTO) 12.8 X10'3 (1.8-7.7); PLATELET COUNT 122 X10'3 (140-440); RED BLOOD COUNT 3.55 X10'6 (4.20-5.60); RED CELL DISTRIBUTION WIDTH 15.1 % (11.5-14.5); WHITE BLOOD COUNT 13.9 X10'3 (4.5-11.0)
[2019-11-18 02:31] LABS: ABG BASE EXCESS -11.5 mmol/L (-2.0-2.0); ABG HCO3 17.5 mmol/L (22.0-26.0); ABG OXYGEN SATURATION 98.1 % (94-97); ABG PCO2 (T) 52.9 mmHg (32.0-45.0); ABG PO2 (T) 131.6 mmHg (75.0-100.0); FCOHb 0.2 % (0.0-3.9); FMetHb 0.2 % (0.0-1.5); FO2Hb 97.7 % (94-97); PATIENT TEMPERATURE 37.1; PEEP 5 cm H2O; RESPIRATORY RATE 24 b/min; TIDAL VOLUME 400 mL; TOTAL HEMOGLOBIN 13.1 G/dl (12.0-16.0)
[2019-11-18] MEDS ORDERED: METHYLPREDNISOLONE SOD SUCC IV SCH (03:06)
[2019-11-18] MEDS ORDERED: NORMAL SALINE IV SCH (03:06)
[2019-11-18] MEDS: potassium cl 20mEq in 1/2 NS 1,000 ML IV SCH ×2 (03:16→15:50)
[2019-11-18] MEDS: vasopressin 40 UNIT in NS 40ml IV DRIP IV SCH (04:07)
[2019-11-18] MEDS: Insulin Reg/NS 100units/100mL 100 ML IV SCH ×2 (04:12→16:02)
[2019-11-18] MEDS: albuterol 2.5 MG/3 ML nebule NEB SCH ×6 (05:31→23:41)
--- NOTE | 2019-11-18 06:30 | NUR ---
Problems reprioritized. Patient report given, questions answered & plan of care reviewed with STANISLAV Nguyen.
[2019-11-18 07:22] LABS: PARTIAL THROMBOPLASTIN TIME 29 SECONDS (22-32)
[2019-11-18 07:29] LABS: PLATELET ESTIMATE DECREASED; TOTAL CELLS COUNTED 100
[2019-11-18 07:52] LABS: ALANINE AMINOTRANSFERASE 110 U/L (12-78); ALBUMIN 1.9 G/DL (3.4-5.0); ALBUMIN/GLOBULIN RATIO 0.6 (1.1-1.5); ALKALINE PHOSPHATASE 144 IU/L (46-116); ANION GAP 12 (8-16); ASPARTATE AMINO TRANSFERASE 202 U/L (10-37); BILIRUBIN,TOTAL 0.3 MG/DL (0.1-1.0); BLOOD UREA NITROGEN 18 MG/DL (7-18); BUN/CREATININE RATIO 14.6 (6.6-38.0); CALCIUM 7.6 MG/DL (8.5-10.1); CHLORIDE 116 MMOL/L (99-107); CREATININE 1.23 MG/DL (0.40-0.90); GLUCOSE 171 MG/DL (70-104); POTASSIUM 4.9 MMOL/L (3.5-5.1); SODIUM 147 MMOL/L (135-145); TOTAL CARBON DIOXIDE 19.2 MMOL/L (24-32); TOTAL PROTEIN 5.2 G/DL (6.4-8.2); eGFR 45 ML/MIN
[2019-11-18] MEDS: K and/or MAG REPLACEMENT MC SCH ×2 (08:00→19:26)
[2019-11-18 08:03] LABS: BILIRUBIN,DIRECT 0.1 MG/DL (0-0.3); CKMB RELATIVE INDEX 4.8 RATIO (0-2.5); CREATINE KINASE 459 U/L (26-192); MAGNESIUM 2.3 MG/DL (1.5-2.4); PHOSPHORUS 5.4 MG/DL (2.3-4.5)
[2019-11-18] MEDS: piperacillin/tazo 3.375gm/50ml 50 ML IV SCH ×3 (08:12→23:55)
[2019-11-18] MEDS: pantoprazole 40 MG vial IV SCH (08:12)
[2019-11-18] MEDS: sodium bicarbonate (8.4%) inj. 50 MEQ in dextrose 5%-water 1,000 ML IV SCH ×2 (08:12→20:52)
--- NOTE | 2019-11-18 08:14 | NUR ---
Patient in room ICU 2046. I have received report from Divya COLORADO and had the opportunity to ask questions and assume patient care. Addendum: 11/18/19 at 0814 by Wendy Claire RN Amended: Links added.
[2019-11-18 08:47] LABS: BASOPHILS # (AUTO) 0.2 X10'3 (0-0.2); EOSINOPHILS % (AUTO) 0 % (0-6); HEMATOCRIT 39.3 % (35.0-45.0); HEMOGLOBIN 12.7 g/dl (12.0-16.0); LYMPHOCYTES # (AUTO) 0.6 X10'3 (1.1-4.8); LYMPHOCYTES % (AUTO) 3.7 % (21-51); MEAN CORPUSCULAR HEMOGLOBIN 33.5 PG (27.0-31.0); MEAN CORPUSCULAR HGB CONC 32.3 g/dL (33.0-36.5); MEAN CORPUSCULAR VOLUME 103.6 FL (78-98); MEAN PLATELET VOLUME 10.3 FL (7.4-10.4); MONOCYTES # (AUTO) 0.4 X10'3 (0-0.9); MONOCYTES % (AUTO) 2.5 % (2-12); NEUTROPHILS # (AUTO) 15.9 X10'3 (1.8-7.7); NEUTROPHILS % (AUTO) 92.8 % (42-75); PLATELET COUNT 125 X10'3 (140-440); RED BLOOD COUNT 3.79 X10'6 (4.20-5.60); RED CELL DISTRIBUTION WIDTH 15.2 % (11.5-14.5); WHITE BLOOD COUNT 17.1 X10'3 (4.5-11.0)
[2019-11-18 09:46] LABS: CLARITY,URINE CLOUDY (Clear); COLOR,URINE YELLOW (Yellow); GLUCOSE, URINE NEGATIVE (Neg); KETONES,URINE NEGATIVE (Neg); LEUKOCYTE ESTERASE ,URINE NEGATIVE (Neg); NITRITES, URINE NEGATIVE (Neg); OCCULT BLOOD,URINE LARGE (Neg); PROTEIN,URINE 100 mg/dl (Neg); UROBILINOGEN,URINE 0.2 E.U/dL (0.2-1.0)
[2019-11-18 09:49] LABS: UA COLLECTION TYPE NON-SPECIFIED
[2019-11-18 09:51] LABS: CELLULAR CAST >30 /LPF (NEGATIVE)
[2019-11-18 09:52] LABS: RBC,URINE 0-2 /HPF (0-2)
[2019-11-18 09:53] LABS: BACTERIA,URINE FEW /HPF (Neg); MUCUS STRANDS NONE SEEN /LPF (Neg); SQUAMOUS EPITHELIAL CELL,UR FEW /LPF (FEW)
--- NOTE | 2019-11-18 10:52 | NUR ---
Back from CT chest, abdomen, pelvis.
--- NOTE | 2019-11-18 10:52 | NUR ---
PER JACINTO RN NO PICC LINE NEEDED. Brigida MORALES PICC RN
--- NOTE | 2019-11-18 12:00 | NUR ---
Temp 35.7 Federico hugger placed on patient.
[2019-11-18] MEDS ORDERED: gelatin sponge, absorbable (Gelfoam 12-7MM) sponge TP ONE (12:05)
[2019-11-18 13:31] LABS: BASOPHILS # (AUTO) 0.1 X10'3 (0-0.2); BASOPHILS % (AUTO) 0.5 % (0-1); EOSINOPHILS % (AUTO) 0 % (0-6); HEMATOCRIT 38.2 % (35.0-45.0); HEMOGLOBIN 12.3 g/dl (12.0-16.0); LYMPHOCYTES # (AUTO) 0.8 X10'3 (1.1-4.8); LYMPHOCYTES % (AUTO) 3.7 % (21-51); MEAN CORPUSCULAR HEMOGLOBIN 33.2 PG (27.0-31.0); MEAN CORPUSCULAR HGB CONC 32.2 g/dL (33.0-36.5); MEAN CORPUSCULAR VOLUME 103.2 FL (78-98); MEAN PLATELET VOLUME 10.5 FL (7.4-10.4); MONOCYTES # (AUTO) 0.4 X10'3 (0-0.9); MONOCYTES % (AUTO) 1.7 % (2-12); NEUTROPHILS # (AUTO) 19.1 X10'3 (1.8-7.7); NEUTROPHILS % (AUTO) 94.1 % (42-75); PLATELET COUNT 114 X10'3 (140-440); RED CELL DISTRIBUTION WIDTH 15.2 % (11.5-14.5); WHITE BLOOD COUNT 20.3 X10'3 (4.5-11.0)
[2019-11-18 13:44] LABS: PARTIAL THROMBOPLASTIN TIME 31 SECONDS (22-32)
[2019-11-18 13:45] LABS: ALANINE AMINOTRANSFERASE 104 U/L (12-78); ALBUMIN 1.8 G/DL (3.4-5.0); ALBUMIN/GLOBULIN RATIO 0.6 (1.1-1.5); ALKALINE PHOSPHATASE 149 IU/L (46-116); ANION GAP 9 (8-16); ASPARTATE AMINO TRANSFERASE 241 U/L (10-37); BILIRUBIN,TOTAL 0.4 MG/DL (0.1-1.0); BLOOD UREA NITROGEN 20 MG/DL (7-18); BUN/CREATININE RATIO 17.1 (6.6-38.0); CALCIUM 7.8 MG/DL (8.5-10.1); CHLORIDE 116 MMOL/L (99-107); CREATININE 1.17 MG/DL (0.40-0.90); GLUCOSE 186 MG/DL (70-104); POTASSIUM 4.3 MMOL/L (3.5-5.1); SODIUM 145 MMOL/L (135-145); TOTAL CARBON DIOXIDE 20.3 MMOL/L (24-32); eGFR 48 ML/MIN
--- NOTE | 2019-11-18 13:46 | NUR ---
Dr. García here to perform liver bx.
[2019-11-18 13:53] LABS: BILIRUBIN,DIRECT 0.1 MG/DL (0-0.3); CKMB RELATIVE INDEX 3.9 RATIO (0-2.5); CREATINE KINASE 607 U/L (26-192); MAGNESIUM 2.1 MG/DL (1.5-2.4); PHOSPHORUS 4.9 MG/DL (2.3-4.5)
[2019-11-18] MEDS: levoTHYROXINE sod inj. 200 MCG in normal saline 500ml IV soln 490 ML IV SCH (13:53)
[2019-11-18 14:13] LABS: PLATELET ESTIMATE DECREASED; TOTAL CELLS COUNTED 100
[2019-11-18 14:14] LABS: BURR CELLS FEW
--- NOTE | 2019-11-18 14:38 | NUR ---
Post liver biopsy CXR being done now.
--- NOTE | 2019-11-18 14:43 | NUR ---
Sister Samia and father Leo here to visit pt.
[2019-11-18] MEDS ORDERED: furosemide 40mg/4ml inj IV ONE (16:35)
[2019-11-18 17:06] LABS: ABG BASE EXCESS -9.4 mmol/L (-2.0-2.0); ABG HCO3 17.7 mmol/L (22.0-26.0); ABG OXYGEN SATURATION 91.5 % (94-97); ABG PCO2 (T) 42.6 mmHg (32.0-45.0); ABG PO2 (T) 61.8 mmHg (75.0-100.0); FCOHb 0.4 % (0.0-3.9); FMetHb 0.1 % (0.0-1.5); PATIENT TEMPERATURE 36.8; PEEP 8 cm H2O; RESPIRATORY RATE 24 b/min; TIDAL VOLUME 400 mL; TOTAL HEMOGLOBIN 13.2 G/dl (12.0-16.0)
--- NOTE | 2019-11-18 17:31 | NUR ---
Pt.'s BP has been labile all shift. SBP will be 200 and then in the 80s at the next moment. Constantly adjusting Levophed rate.
--- NOTE | 2019-11-18 17:37 | NUR ---
Pt. planned to go to the OR tomorrow at 1200.
--- NOTE | 2019-11-18 18:09 | NUR ---
Problems reprioritized. Patient report given, questions answered & plan of care reviewed with Divya COLORADO.
[2019-11-18] MEDS: insulin glargine (Lantus) pen - multi-dose SQ SCH (18:18)
--- NOTE | 2019-11-18 18:21 | NUR ---
Patient in room ICU 2046. I have received report from STANISLAV Nguyen and had the opportunity to ask questions and assume patient care.
[2019-11-18 19:44] LABS: BASOPHILS # (AUTO) 0.1 X10'3 (0-0.2)
[2019-11-18 19:46] LABS: BASOPHILS % (AUTO) 0.4 % (0-1); EOSINOPHILS % (AUTO) 0 % (0-6); HEMATOCRIT 35.7 % (35.0-45.0); HEMOGLOBIN 11.7 g/dl (12.0-16.0); LYMPHOCYTES # (AUTO) 0.8 X10'3 (1.1-4.8); LYMPHOCYTES % (AUTO) 3.7 % (21-51); MEAN CORPUSCULAR HGB CONC 32.8 g/dL (33.0-36.5); MEAN CORPUSCULAR VOLUME 103.9 FL (78-98); MEAN PLATELET VOLUME 10.3 FL (7.4-10.4); MONOCYTES # (AUTO) 0.7 X10'3 (0-0.9); MONOCYTES % (AUTO) 3.4 % (2-12); NEUTROPHILS # (AUTO) 20.1 X10'3 (1.8-7.7); NEUTROPHILS % (AUTO) 92.5 % (42-75); PLATELET COUNT 98 X10'3 (140-440); RED BLOOD COUNT 3.43 X10'6 (4.20-5.60); WHITE BLOOD COUNT 21.7 X10'3 (4.5-11.0)
[2019-11-18 19:55] LABS: PARTIAL THROMBOPLASTIN TIME 31 SECONDS (22-32)
[2019-11-18 19:56] LABS: ALANINE AMINOTRANSFERASE 100 U/L (12-78); ALBUMIN 1.7 G/DL (3.4-5.0); ALBUMIN/GLOBULIN RATIO 0.5 (1.1-1.5); ALKALINE PHOSPHATASE 141 IU/L (46-116); ANION GAP 9 (8-16); ASPARTATE AMINO TRANSFERASE 250 U/L (10-37); BILIRUBIN,TOTAL 0.4 MG/DL (0.1-1.0); BLOOD UREA NITROGEN 21 MG/DL (7-18); BUN/CREATININE RATIO 18.6 (6.6-38.0); CALCIUM 7.8 MG/DL (8.5-10.1); CHLORIDE 115 MMOL/L (99-107); CREATININE 1.13 MG/DL (0.40-0.90); GLUCOSE 114 MG/DL (70-104); SODIUM 146 MMOL/L (135-145); TOTAL CARBON DIOXIDE 22.1 MMOL/L (24-32); TOTAL PROTEIN 4.9 G/DL (6.4-8.2); eGFR 50 ML/MIN
[2019-11-18 20:05] LABS: BILIRUBIN,DIRECT 0.1 MG/DL (0-0.3); CKMB RELATIVE INDEX 3.1 RATIO (0-2.5); CREATINE KINASE 539 U/L (26-192); MAGNESIUM 1.9 MG/DL (1.5-2.4); PHOSPHORUS 4.6 MG/DL (2.3-4.5)
[2019-11-18] MEDS: MAGNESIUM 2 GRAM IN 50ML NS IV PRN (20:41)
[2019-11-18 23:56] LABS: ABG BASE EXCESS -8.3 mmol/L (-2.0-2.0); ABG HCO3 17.7 mmol/L (22.0-26.0); ABG OXYGEN SATURATION 92.9 % (94-97); ABG PCO2 (T) 37.2 mmHg (32.0-45.0); ABG PO2 (T) 67.7 mmHg (75.0-100.0); FCOHb 0.2 % (0.0-3.9); FMetHb 0.2 % (0.0-1.5); FO2Hb 92.5 % (94-97); PATIENT TEMPERATURE 36.6; PEEP 8 cm H2O; RESPIRATORY RATE 24 b/min; TIDAL VOLUME 400 mL; TOTAL HEMOGLOBIN 12.1 G/dl (12.0-16.0)
[2019-11-19] VITALS (14 sets, daily range): BP systolic 99–141; BP diastolic 52–80
[2019-11-19 01:27] LABS: BASOPHILS % (AUTO) 0.3 % (0-1); EOSINOPHILS % (AUTO) 0 % (0-6); HEMATOCRIT 32.3 % (35.0-45.0); HEMOGLOBIN 10.8 g/dl (12.0-16.0); LYMPHOCYTES # (AUTO) 0.5 X10'3 (1.1-4.8); LYMPHOCYTES % (AUTO) 3.1 % (21-51); MEAN CORPUSCULAR HEMOGLOBIN 34.4 PG (27.0-31.0); MEAN CORPUSCULAR HGB CONC 33.4 g/dL (33.0-36.5); MEAN CORPUSCULAR VOLUME 103.1 FL (78-98); MEAN PLATELET VOLUME 10.2 FL (7.4-10.4); MONOCYTES # (AUTO) 0.2 X10'3 (0-0.9); MONOCYTES % (AUTO) 1.4 % (2-12); NEUTROPHILS # (AUTO) 16.2 X10'3 (1.8-7.7); NEUTROPHILS % (AUTO) 95.2 % (42-75); PLATELET COUNT 82 X10'3 (140-440); RED BLOOD COUNT 3.13 X10'6 (4.20-5.60); RED CELL DISTRIBUTION WIDTH 14.9 % (11.5-14.5)
[2019-11-19 01:32] LABS: PARTIAL THROMBOPLASTIN TIME 33 SECONDS (22-32)
[2019-11-19 01:33] LABS: ALANINE AMINOTRANSFERASE 88 U/L (12-78); ALBUMIN 1.6 G/DL (3.4-5.0); ALBUMIN/GLOBULIN RATIO 0.5 (1.1-1.5); ALKALINE PHOSPHATASE 132 IU/L (46-116); ANION GAP 10 (8-16); ASPARTATE AMINO TRANSFERASE 220 U/L (10-37); BILIRUBIN,TOTAL 0.4 MG/DL (0.1-1.0); BLOOD UREA NITROGEN 24 MG/DL (7-18); BUN/CREATININE RATIO 19.8 (6.6-38.0); CALCIUM 7.9 MG/DL (8.5-10.1); CHLORIDE 113 MMOL/L (99-107); CREATININE 1.21 MG/DL (0.40-0.90); GLUCOSE 242 MG/DL (70-104); POTASSIUM 3.7 MMOL/L (3.5-5.1); SODIUM 144 MMOL/L (135-145); TOTAL CARBON DIOXIDE 20.9 MMOL/L (24-32); TOTAL PROTEIN 4.6 G/DL (6.4-8.2); eGFR 46 ML/MIN
[2019-11-19 01:44] LABS: BILIRUBIN,DIRECT 0.1 MG/DL (0-0.3); CKMB RELATIVE INDEX 2.9 RATIO (0-2.5); CREATINE KINASE 381 U/L (26-192); MAGNESIUM 2.4 MG/DL (1.5-2.4); PHOSPHORUS 4.6 MG/DL (2.3-4.5)
[2019-11-19] MEDS: Insulin Reg/NS 100units/100mL 100 ML IV SCH ×2 (02:22→11:10)
[2019-11-19] MEDS: albuterol 2.5 MG/3 ML nebule NEB SCH ×3 (03:08→11:25)
[2019-11-19 03:25] LABS: ABG BASE EXCESS -8.1 mmol/L (-2.0-2.0); ABG HCO3 18.6 mmol/L (22.0-26.0); ABG OXYGEN SATURATION 94.1 % (94-97); ABG PCO2 (T) 42.8 mmHg (32.0-45.0); ABG PO2 (T) 74.9 mmHg (75.0-100.0); FMetHb 0.2 % (0.0-1.5); FO2Hb 93.9 % (94-97); PATIENT TEMPERATURE 37.1; PEEP 8 cm H2O; RESPIRATORY RATE 24 b/min; TIDAL VOLUME 400 mL; TOTAL HEMOGLOBIN 11.7 G/dl (12.0-16.0)
[2019-11-19] MEDS: NORepinephrine 8mg/ 250ml NS 250 ML IV SCH (04:49)
--- NOTE | 2019-11-19 06:27 | NUR ---
Problems reprioritized. Patient report given, questions answered & plan of care reviewed with STANISLAV Da Silva.
--- NOTE | 2019-11-19 06:30 | NUR ---
Patient in room ICU 2046. I have received report from STANISLAV Stokes and had the opportunity to ask questions and assume patient care.
[2019-11-19] MEDS: pantoprazole 40 MG vial IV SCH (07:16)
[2019-11-19] MEDS: piperacillin/tazo 3.375gm/50ml 50 ML IV SCH (07:16)
[2019-11-19] MEDS: K and/or MAG REPLACEMENT MC SCH (08:00)
[2019-11-19 08:30] LABS: ABG BASE EXCESS -5.2 mmol/L (-2.0-2.0); ABG HCO3 20.3 mmol/L (22.0-26.0); ABG OXYGEN SATURATION 94.7 % (94-97); ABG PCO2 (T) 39.6 mmHg (32.0-45.0); ABG PO2 (T) 74.3 mmHg (75.0-100.0); FCOHb 0.3 % (0.0-3.9); FMetHb 0.3 % (0.0-1.5); FO2Hb 94.1 % (94-97); PEEP 8 cm H2O; RESPIRATORY RATE 24 b/min; TIDAL VOLUME 400 mL; TOTAL HEMOGLOBIN 11.7 G/dl (12.0-16.0)
[2019-11-19] MEDS: levoTHYROXINE sod inj. 200 MCG in normal saline 500ml IV soln 490 ML IV SCH (08:46)
[2019-11-19 09:52] LABS: BASOPHILS % (AUTO) 0.2 % (0-1); EOSINOPHILS % (AUTO) 0 % (0-6); HEMATOCRIT 32.5 % (35.0-45.0); HEMOGLOBIN 10.7 g/dl (12.0-16.0); LYMPHOCYTES # (AUTO) 0.4 X10'3 (1.1-4.8); LYMPHOCYTES % (AUTO) 2.4 % (21-51); MEAN CORPUSCULAR HEMOGLOBIN 33.6 PG (27.0-31.0); MEAN CORPUSCULAR HGB CONC 33.1 g/dL (33.0-36.5); MEAN CORPUSCULAR VOLUME 101.8 FL (78-98); MEAN PLATELET VOLUME 9.6 FL (7.4-10.4); MONOCYTES # (AUTO) 0.4 X10'3 (0-0.9); NEUTROPHILS # (AUTO) 17.7 X10'3 (1.8-7.7); NEUTROPHILS % (AUTO) 95.4 % (42-75); PLATELET COUNT 75 X10'3 (140-440); RED BLOOD COUNT 3.19 X10'6 (4.20-5.60); RED CELL DISTRIBUTION WIDTH 14.9 % (11.5-14.5); WHITE BLOOD COUNT 18.5 X10'3 (4.5-11.0)
[2019-11-19 09:56] LABS: CLARITY,URINE CLOUDY (Clear); COLOR,URINE YELLOW (Yellow); GLUCOSE, URINE NEGATIVE (Neg); KETONES,URINE NEGATIVE (Neg); LEUKOCYTE ESTERASE ,URINE NEGATIVE (Neg); NITRITES, URINE NEGATIVE (Neg); OCCULT BLOOD,URINE LARGE (Neg); PH,URINE 5.5 (4.8-8.0); PROTEIN,URINE 100 mg/dl (Neg); UROBILINOGEN,URINE 0.2 E.U/dL (0.2-1.0)
[2019-11-19] MEDS: sodium bicarbonate (8.4%) inj. 50 MEQ in dextrose 5%-water 1,000 ML IV SCH (09:58)
[2019-11-19 09:59] LABS: UA COLLECTION TYPE NON-SPECIFIED
[2019-11-19 10:03] LABS: PARTIAL THROMBOPLASTIN TIME 31 SECONDS (22-32)
[2019-11-19 10:04] LABS: ALANINE AMINOTRANSFERASE 81 U/L (12-78); ALBUMIN 1.7 G/DL (3.4-5.0); ALBUMIN/GLOBULIN RATIO 0.5 (1.1-1.5); ALKALINE PHOSPHATASE 133 IU/L (46-116); ANION GAP 9 (8-16); ASPARTATE AMINO TRANSFERASE 252 U/L (10-37); BILIRUBIN,TOTAL 0.4 MG/DL (0.1-1.0); BLOOD UREA NITROGEN 26 MG/DL (7-18); BUN/CREATININE RATIO 24.8 (6.6-38.0); CHLORIDE 112 MMOL/L (99-107); CREATININE 1.05 MG/DL (0.40-0.90); GLUCOSE 205 MG/DL (70-104); POTASSIUM 3.6 MMOL/L (3.5-5.1); SODIUM 143 MMOL/L (135-145); TOTAL CARBON DIOXIDE 21.8 MMOL/L (24-32); TOTAL PROTEIN 4.8 G/DL (6.4-8.2); eGFR 54 ML/MIN
[2019-11-19 10:09] LABS: URIC ACID CRYSTALS 4+ /HPF (NEGATIVE)
[2019-11-19 10:11] LABS: BACTERIA,URINE 3+ /HPF (Neg); SQUAMOUS EPITHELIAL CELL,UR FEW /LPF (FEW)
[2019-11-19 10:12] LABS: RBC,URINE TNTC /HPF (0-2)
[2019-11-19 10:13] LABS: CELLULAR CAST >30 /LPF (NEGATIVE)
[2019-11-19 10:14] LABS: TRANSITIONAL EPI CELLS,URINE MODERATE /HPF
[2019-11-19 10:14] LABS: BILIRUBIN,DIRECT 0.1 MG/DL (0-0.3); CKMB RELATIVE INDEX 2.1 RATIO (0-2.5); CREATINE KINASE 337 U/L (26-192); MAGNESIUM 2.4 MG/DL (1.5-2.4); PHOSPHORUS 3.6 MG/DL (2.3-4.5)
[2019-11-19] MEDS ORDERED: ringers solution, lacted 1,000 ML IV ONE (11:25)
== END 2019-11-19 13:00 | disposition expired | DRG 208 ==
LOC: ER 12:58 → ED HOLD 13:41 → EDBEDREQTM 15:14 → ICU 2S 17:20
PROC: 4A00X4Z Measurement of Central Nervous Electrical Activity, External Approach (ICD-10-PCS; principal; 2019-11-15)
PROC: 5A1945Z Respiratory Ventilation, 24-96 Consecutive Hours (ICD-10-PCS; 2019-11-15)
PROC: 5A12012 Performance of Cardiac Output, Single, Manual (ICD-10-PCS; 2019-11-15)
PROC: 0BH17EZ Insertion of Endotracheal Airway into Trachea, Via Natural or Artificial Opening (ICD-10-PCS; 2019-11-15)
PROC: 4A00X4Z Measurement of Central Nervous Electrical Activity, External Approach (ICD-10-PCS; 2019-11-17)
DX: J18.9 Pneumonia, unspecified organism (principal); E11.10 Type 2 diabetes mellitus with ketoacidosis without coma; G40.802 Other epilepsy, not intractable, without status epilepticus; I46.9 Cardiac arrest, cause unspecified; E87.6 Hypokalemia; G93.89 Other specified disorders of brain; I10 Essential (primary) hypertension; I48.91 Unspecified atrial fibrillation; Z87.891 Personal history of nicotine dependence
CPT/HCPCS: 31500; 36415; 36556; 36600; 47000; 70450; 71045; 71250; 71275; 74176; 74177; 76937; 76942; 80048; 80053; 80076; 80305; 81001; 82150; 82330; 82550; 82553; 82803; 82810; 82948; 83036; 83605; 83690; 83735; 83880; 84100; 84132; 84145; 84295; 84439; 84443; 84484; 84703; 85007; 85018; 85025; 85379; 85384; 85610; 85730; 86885; 86900; 86901; 87040; 87045; 87046; 87070; 87081; 87324; 87449; 93005; 93306; 93308; 93925; 93970; 94002; 94003; 94640; 94760; 95816; 96365; 99291; 99292; A4618; C9113; G0378; J0692; J0696; J1250; J1644; J1815; J1940; J1953; J1956; J2543; J2704; J2930; J3370; J3475; J3480; J3490; J7030; J7040; J7050; J7060; J7070; J7120; Q9967